=== PATIENT | male | born 1990 | race Caucasian/White ===

== ENCOUNTER 2017-05-13 14:19 | Emergency (ER) | payer BC, OTHER ==
[~2017-05-13] VITALS: Wt 88.0 kg
[~2017-05-13 14:19] MED LIST: ACET500T98 PO; IBUP200C PO; ONDA4TAB35 PO; OSLT75C PO
[2017-05-13] MEDS ORDERED: SOD CHLORIDE 0.9% 1,000 ML IV STA (16:48)
[2017-05-13] MEDS ORDERED: ONDANSETRON 4 MG INJ IV STA (16:48)
[2017-05-13 17:24] LABS: BASOPHILS % 0.3 % (0.0-2.0); EOSINOPHILS % 0.4 % (0.0-7.0); HEMATOCRIT 47.3 % (42.0-52.0); HEMOGLOBIN 16.4 g/dl (14.0-18.0); LYMPHOCYTES # 1.8 10^3/ul (0.8-2.9); LYMPHOCYTES % 16.6 % (15.0-51.0); MEAN CORPUSCULAR HEMOGLOBIN 30.3 pg (29.0-33.0); MEAN CORPUSCULAR HGB CONC 34.7 g/dl (32.0-37.0); MEAN CORPUSCULAR VOLUME 87.4 fl (82.0-101.0); MEAN PLATELET VOLUME 12.1 fl (7.4-10.4); MONOCYTE # 0.6 10^3/ul (0.3-0.9); MONOCYTES % 5.6 % (0.0-11.0); NEUTROPHIL # 8.4 10^3/ul (1.6-7.5); NEUTROPHILS % 76.8 % (39.0-77.0); PLATELET COUNT 240 10^3/UL (140-415); RED BLOOD COUNT 5.41 10^6/ul (4.70-6.10); RED CELL DISTRIBUTION WIDTH 12.5 % (11.5-14.5)
[2017-05-13 17:48] LABS: ALBUMIN 5.3 g/dl (3.3-4.9); ALBUMIN/GLOBULIN RATIO 1.76; BILIRUBIN,INDIRECT 0.8 mg/dl (0-1.1); BILIRUBIN,TOTAL 0.8 mg/dl (0.2-1.3); CALCIUM 10.3 mg/dl (8.4-10.2); CREATININE 0.88 mg/dl (0.61-1.24); POTASSIUM 4.3 mmol/L (3.5-5.1); TOTAL PROTEIN 8.3 g/dl (6.1-8.1)
[2017-05-13] MEDS ORDERED: ONDA4TAB14 PO (17:54)
[2017-05-13 18:10] VITALS: BP 142/78; PULSE 78; RESP 18
--- NOTE | 2017-05-13 22:49 | ERD ---
ER Documentation Chief Complaint Chief Complaint GEN ABD PAIN WITH NAUSEA AND VOMITING SINCE LAST NIGHT. ETOH LAST NIGHT. HPI Patient is a 26-year-old male presenting to the emergency department complaints of generalized abdominal pain, nausea, and vomiting which began last night. The patient states he drinks a heavy amount of alcohol last night and may have eaten bad pizza. He states he believes he "needs IV fluid treatment". Symptoms are intermittent and mild in severity. He reports approximately 10 episodes of nonbilious and nonbloody vomiting today. ROS All systems reviewed and are negative except as per history of present illness. Medications Home Meds Active Scripts Ondansetron (Ondansetron Odt) 4 Mg Tab.rapdis, 4 MG PO Q6H Y for NAUSEA AND/OR VOMITING, #10 TAB Prov:MELBA LEE PA-C 05/13/17 Ondansetron Hcl* (Zofran* ODT) 4 mg -ODT Tab.disper, 4 MG PO DAILY for NAUSEA AND/OR VOMITING, #10 TAB 0 Refills Prov:SUMI HOLLAND PA-C 06/26/15 Ibuprofen* (Ibuprofen*) 200 Mg Capsule, 200 MG PO Q6, #30 CAP 0 Refills Prov:SUMI HOLLAND PA-C 06/26/15 Acetaminophen (Tylenol) 500 Mg Tab, 500 MG PO Q6, #30 TAB 0 Refills Prov:SUMI HOLLAND PA-C 06/26/15 Oseltamivir Phosphate* (Tamiflu*) 75 Mg Capsule, 75 MG PO BID, #5 CAP 0 Refills Prov:SUMI HOLLAND PA-C 06/26/15 Allergies Allergies: Coded Allergies: No Known Allergy (Unverified , 05/13/17) PMhx/Soc Medical and Surgical Hx: pt denies Medical Hx, pt denies Surgical Hx Hx Alcohol Use: Yes Hx Substance Use: No Hx Tobacco Use: Yes Smoking Status: Never smoker Physical Exam Vitals Vital Signs Date Time Temp Pulse Resp B/P Pulse Ox O2 Delivery O2 Flow Rate FiO2 05/13/17 18:10 78 18 142/78 98 Room Air 05/13/17 14:24 98.7 83 21 150/72 98 Physical Exam Const: Nontoxic, well-appearing male in no acute distress. Head: Atraumatic Eyes: Normal Conjunctiva ENT: Normal External Ears, Nose and Mouth. Neck: Full range of motion..~ No meningismus. Resp: Clear to auscultation bilaterally Cardio: Regular rate and rhythm, no murmurs Abd: Soft, non tender, non distended. Normal bowel sounds. Negative Fenton sign. No McBurney's point tenderness. No rebound tenderness or guarding. Skin: No petechiae or rashes Ext: No cyanosis, or edema Neur: Awake and alert Psych: Normal Mood and Affect Result Diagram: 05/13/17170405/13/171704 Results 24 hrs Laboratory Tests Test 05/13/17 17:05 White Blood Count 11.010^3/ul Red Blood Count 5.4110^6/ul Hemoglobin 16.4g/dl Hematocrit 47.3% Mean Corpuscular Volume 87.4fl Mean Corpuscular Hemoglobin 30.3pg Mean Corpuscular Hemoglobin Concent 34.7g/dl Red Cell Distribution Width 12.5% Platelet Count 38760^3/UL Mean Platelet Volume 12.1fl Neutrophils % 76.8% Lymphocytes % 16.6% Monocytes % 5.6% Eosinophils % 0.4% Basophils % 0.3% Nucleated Red Blood Cells % 0.0/100WBC Neutrophils # 8.410^3/ul Lymphocytes # 1.810^3/ul Monocytes # 0.610^3/ul Eosinophils # 0.010^3/ul Basophils # 0.010^3/ul Nucleated Red Blood Cells # 0.010^3/ul Sodium Level 146mmol/L Potassium Level 4.3mmol/L Chloride Level 105mmol/L Carbon Dioxide Level 27mmol/L Anion Gap 18 Blood Urea Nitrogen 13mg/dl Creatinine 0.88mg/dl Glucose Level 83mg/dl Calcium Level 10.3mg/dl Total Bilirubin 0.8mg/dl Direct Bilirubin 0.00mg/dl Indirect Bilirubin 0.8mg/dl Aspartate Amino Transf (AST/SGOT) 26IU/L Alanine Aminotransferase (ALT/SGPT) 35IU/L Alkaline Phosphatase 75IU/L Total Protein 8.3g/dl Albumin 5.3g/dl Globulin 3.00g/dl Albumin/Globulin Ratio 1.76 Lipase 67U/L Current Medications Medications (Trade) Dose Ordered Sig/Ija Route PRN Reason Start Time Stop Time Status Last Admin Dose Admin Sodium Chloride (NS) 1,000 ml @ 1,000 mls/hr Q1H STAT IV 05/13/17 16:48 05/13/17 17:47 DC 05/13/17 17:14 Ondansetron HCl (Zofran Inj) 4 mg ONCE STAT IV 05/13/17 16:48 05/13/17 16:49 DC 05/13/17 17:14 Procedures/MDM 26-year-old male presents to the emergency department with complaints of generalized abdominal pain and nausea and vomiting began yesterday evening. Physical examination is essentially unremarkable. Patient was placed on a stretcher and IV line is established. He was given IV fluids, IV Zofran and was feeling much improved on reevaluation. CBC showed mild leukocytosis at 11.0, but not significant. There is no left shift. Chemistry panel showed no significant acute abnormalities. Since the patient was feeling significantly improved, he was stable for discharge after treatment. I do not feel that imaging was required since there was no significant abdominal tenderness on exam, and the patient's vital signs are stable, and he was significantly improved after treatment. He was stable for discharge with outpatient treatment and prescriptions. Pt/family in agreement with discharge plan/diagnosis. Pt/family advised to return immediately with any new or worsening symptoms. Follow-up with primary care physician within the next 1-2 days. Disclaimer: Inadvertent spelling and grammatical errors are likely due to EHR/ dictation software use and do not reflect on the overall quality of patient care. Also, please note that the electronic time recorded on this note does not necessarily reflect the actual time of the patient encounter. Departure Diagnosis: Primary Impression: Nausea and vomiting Vomiting type: unspecified Vomiting Intractability: non-intractable Qualified Code: R11.2 - Non-intractable vomiting with nausea, unspecified vomiting type Condition: Fair Patient Instructions: Nausea and Vomiting-Adult Referrals: FRANSISCO MONTEZ (PCP) Additional Instructions: Call your primary care doctor TOMORROW for an appointment during the next 1-2 days.See the doctor sooner or return here if your condition worsens before your appointment time. MELBA LEE PA-C May 13, 2017 22:49
== END 2017-05-13 18:13 | disposition home or self-care (01) ==
LOC: FTE 14:19
DX: R11.2 Nausea with vomiting, unspecified (principal)
CPT/HCPCS: 36415; 80053; 83690; 85025; 96374; 99284; J2405; J7030

== ENCOUNTER 2018-01-27 17:42 | Emergency (ER) | END 2018-01-27 21:48 | disposition home or self-care (01) ==